=== PATIENT | female | born 1955 | race Caucasian/White ===

== ENCOUNTER 2017-10-17 22:57 | Emergency (ER) | payer SELFPAY ==
[~2017-10-17] VITALS: Ht 154.9 cm; Wt 49.9 kg
[2017-10-17] MEDS ORDERED: NKM (23:10)
[2017-10-17 23:15] VITALS: BP 107/65
[2017-10-17] MEDS ORDERED: RANITIDINE HCL150 MG ORAL (23:50)
[2017-10-17] MEDS ORDERED: ALBUTEROL SULF8.5 GM INH (23:50)
[2017-10-17] MEDS ORDERED: ANUSOL-HC25 MG RECTAL (23:50)
[2017-10-17] MEDS ORDERED: DIPHENHYDRAMINE25 M1 ORAL (23:50)
[2017-10-17] MEDS ORDERED: COLACE100 MG ORAL (23:50)
[2017-10-17] MEDS ORDERED: ONDANSETRON ODT4 MG BC (23:50)
[2017-10-18 00:08] VITALS: BP 107/65
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
--- NOTE | 2017-10-19 10:11 | Cardiology Report ---
APPROVED REPORT EKG Measurement Heart [id number] Normal sinus rhythm Normal ECG
== END 2017-10-18 00:10 | disposition home or self-care (01) ==
LOC: EMR 23:56
DX: K59.00 Constipation, unspecified (principal); K29.70 Gastritis, unspecified, without bleeding
CPT/HCPCS: 93005; 99284